=== PATIENT | female | born 1945 | race African-American/Black ===

== ENCOUNTER → 2019-10-07 | Outpatient (CLI) | payer OTHER | LOC: RAD 10:58 | DX: Z12.31 Encounter for screening mammogram for malignant neoplasm of breast (principal) ==

== ENCOUNTER → 2021-10-26 | Outpatient (CLI) | payer OTHER | LOC: BC 09:05 | PROVIDERS: ATTEND Internal Medicine | DX: Z12.31 Encounter for screening mammogram for malignant neoplasm of breast (principal); N63.20 Unspecified lump in the left breast, unspecified quadrant; N64.89 Other specified disorders of breast ==

== ENCOUNTER → 2021-11-03 | Outpatient (CLI) | payer OTHER | LOC: ULTRA 09:35 | PROVIDERS: ATTEND Internal Medicine | DX: N60.42 Mammary duct ectasia of left breast (principal); N60.02 Solitary cyst of left breast; N63.20 Unspecified lump in the left breast, unspecified quadrant ==